=== PATIENT | female | born 1980 | race Caucasian/White ===

== ENCOUNTER → 2024-04-28 06:28 | Day surgery (SDC) | payer BC, SELFPAY ==
[2024-04-28 07:23] LABS: Glucose - Point of Care 213 mg/dl (70-99)
== END ==
LOC: GI 06:28
PROVIDERS: ATTENDING PHYSICIAN Internal Medicine
DX: Z12.11 Encounter for screening for malignant neoplasm of colon (principal); Z83.719 Family history of colon polyps, unspecified; K57.30 Diverticulosis of large intestine without perforation or abscess without bleeding; K64.9 Unspecified hemorrhoids; K63.5 Polyp of colon
CPT/HCPCS: 45380; 88305; 82962

== ENCOUNTER → 2024-05-06 10:31 | Outpatient (REF) | payer BC, SELFPAY | LOC: HWWDC 10:31 | PROVIDERS: ATTENDING PHYSICIAN Nurse Practitioner Family; FAMILY PHYSICIAN Physician Assistant Medical | DX: Z12.31 Encounter for screening mammogram for malignant neoplasm of breast (principal) | CPT/HCPCS: 77063; 77067 ==

== ENCOUNTER → 2024-05-16 08:44 | Outpatient (REF) | payer BC, SELFPAY | LOC: WDC 08:44 | PROVIDERS: ATTENDING PHYSICIAN Nurse Practitioner Family; FAMILY PHYSICIAN Physician Assistant Medical | DX: R92.8 Other abnormal and inconclusive findings on diagnostic imaging of breast (principal) | CPT/HCPCS: 76642 ==

== ENCOUNTER → 2024-05-18 08:07 | Outpatient (REF) | payer BC, SELFPAY ==
--- NOTE | 2024-05-18 14:54 | OID.BR.INTR ---
[facility] Breast Navigator - Initial
- -
Date of Contact: 05/18/24
Met with patient. Patient given written information on navigator service available at [facility]. Will follow up as needed per protocol.
== END ==
LOC: WDC 08:07
PROVIDERS: ATTENDING PHYSICIAN Nurse Practitioner Family; FAMILY PHYSICIAN Physician Assistant Medical
DX: N63.11 Unspecified lump in the right breast, upper outer quadrant (principal)
CPT/HCPCS: 88305; 19083; 77065; 88341; 88342; 88360; A4648

== ENCOUNTER → 2024-05-24 13:41 | Outpatient (REF) | payer BC, SELFPAY | LOC: WDC 13:41 | PROVIDERS: ATTENDING PHYSICIAN Nurse Practitioner Family; FAMILY PHYSICIAN Physician Assistant Medical | DX: R92.30 Dense breasts, unspecified (principal); Z80.3 Family history of malignant neoplasm of breast; D05.91 Unspecified type of carcinoma in situ of right breast | CPT/HCPCS: 76641 ==

== ENCOUNTER → 2024-06-09 08:19 | Outpatient (REF) | payer BC, SELFPAY | LOC: WDC 08:19 | PROVIDERS: ATTENDING PHYSICIAN Surgery | DX: D05.91 Unspecified type of carcinoma in situ of right breast (principal) | CPT/HCPCS: 19281; A4648 ==

== ENCOUNTER 2024-06-10 06:10 | Day surgery (SDC) | payer BC, SELFPAY ==
[2024-06-02 09:08] LABS: Mean Corp Hgb Conc. 34.1 g/dL (33.0-37.0); Mean Corpuscular Hgb 31.9 pg (27.0-31.0); Mean Corpuscular Volume 93.4 fL (81.0-99.0); Mean Platelet Volume 10.2 fL (7.4-10.4); Platelet Count 218 10^3/uL (130-400); Red Blood Cell Count 4.39 10^6/uL (4.20-5.40); Red Cell Dist. Width 12.9 % (11.5-14.5); White Blood Cell Count 6.7 10^3/uL (4.8-10.8)
[2024-06-02 09:50] VITALS: BMI 25.5
[2024-06-02 12:03] LABS: Prealbumin (Transthyretin) 23.4 mg/dl (17.6-36.0)
[2024-06-02 12:07] LABS: ALT (SGPT) 18 U/L (0-35); AST (SGOT) 27 U/L (14-36); Albumin 4.2 g/dl (3.5-5.0); Alkaline Phosphatase 77 U/L (38-126); Blood Urea Nitrogen 13 mg/dl (7-17); Calcium 9.2 mg/dl (8.4-10.2); Carbon Dioxide 27 mmol/L (22-30); Chloride 102 mmol/L (98-107); Estimated Creatinine Clearance 98 ml/min; Glucose 111 mg/dl (70-99); Potassium 3.8 mmol/L (3.5-5.1); Sodium 137 mmol/L (135-145); Total Bilirubin 0.4 mg/dl (0.2-1.3); Total Protein 6.8 g/dl (6.3-8.2); eGFR > 60.00
[2024-06-02 12:23] LABS: Vitamin D, 25-OH*** 45.5 ng/mL (30-80)
[2024-06-10 14:03] VITALS: BP 129/85; BMI 25.5
[2024-06-10 14:27] LABS: Glucose - Point of Care 253 mg/dl (70-99)
[2024-06-10] MEDS: TYLENOL 1000 MG PO (14:59)
[2024-06-10] MEDS: VANCOCIN 200 IV (15:22)
[2024-06-10] MEDS: LOVENOX 40 MG SC (15:28)
[2024-06-10 15:47] LABS: HCG, Urine Qualitative Screen Negative
[2024-06-10 16:30] LABS: Glucose - Point of Care 206 mg/dl (70-99)
--- NOTE | 2024-06-10 17:37 | W.IMMPOSTOP ---
Surgical Immed Post Op Note
-
Primary Surgeon: vIon
Assisting Surgeon: None
Pre-op Diagnosis: Right breast DCIS
Post-op Diagnosis: Same
Procedure Performed: Right localized lumpectomy
Anesthesia Type: TIVA
Specimen / Cultures: Right lumpectomy, margins
Estimated Blood Loss: 4cc
Complications: None
Operative Findings: Clip and reflector in specimen
[2024-06-10 17:43] VITALS: BP 101/76
[2024-06-10 17:45] VITALS: BP 101/87
[2024-06-10 18:00] VITALS: BP 109/87
[2024-06-10 18:15] VITALS: BP 118/85
== END 2024-06-10 18:20 | disposition home or self-care (01) ==
LOC: SDS 06:10
PROVIDERS: ATTENDING PHYSICIAN Surgery; FAMILY PHYSICIAN Physician Assistant Medical; OTHER PHYSICIAN Internal Medicine; REFERRING PHYSICIAN Nurse Practitioner Family
DX: D05.11 Intraductal carcinoma in situ of right breast (principal); Z17.0 Estrogen receptor positive status [ER+]
CPT/HCPCS: 19301; 88305; 88307; 36415; 76098; 80053; 81025; 82306; 82962; 84134; 85027; 88341; 88342; 88360; A4648

== ENCOUNTER → 2024-10-28 10:11 | Outpatient (REF) | payer BC, SELFPAY | LOC: RAD 10:11 | PROVIDERS: ATTENDING PHYSICIAN Physician Assistant Medical; FAMILY PHYSICIAN Physician Assistant Medical | DX: M25.512 Pain in left shoulder (principal) | CPT/HCPCS: 73000; 73030 ==

== ENCOUNTER → 2025-05-30 13:58 | Outpatient (REF) | payer BC, SELFPAY | LOC: WDC 13:58 | PROVIDERS: ATTENDING PHYSICIAN Nurse Practitioner Family | DX: Z12.31 Encounter for screening mammogram for malignant neoplasm of breast (principal); D05.91 Unspecified type of carcinoma in situ of right breast; R21 Rash and other nonspecific skin eruption; R92.8 Other abnormal and inconclusive findings on diagnostic imaging of breast | CPT/HCPCS: 76642; 77063; 77067 ==